=== PATIENT | male | born 1980 | race Caucasian/White ===

== ENCOUNTER 2020-04-16 03:32 | Emergency (ER) | payer MEDICAID ==
[~2020-04-16] VITALS: Ht 175.3 cm; Wt 100.0 kg
[~2020-04-16 03:32] MED LIST: ARIP10TA15 PO; FAMO20TA8 PO; FLUO20CA39 PO; GABA300C PO; OMEP20CA15 PO; PRAZ1CAP2 PO
[2020-04-16] MEDS ORDERED: triamcinolone acetonide 40mg/ml inj IM ONE (04:35)
[2020-04-16] MEDS ORDERED: ketorolac trometh inj. 60 MG/2 ML VIAL IM ONE (04:35)
[2020-04-16] MEDS ORDERED: acetaminophen 325mg tablet PO ONE (04:35)
[2020-04-16 04:49] VITALS: BP 115/71
== END 2020-04-16 04:51 | disposition home or self-care (01) ==
LOC: ER 03:32
DX: M25.532 Pain in left wrist (principal); M54.9 Dorsalgia, unspecified; K21.9 Gastro-esophageal reflux disease without esophagitis; I10 Essential (primary) hypertension; F32.9 Major depressive disorder, single episode, unspecified; F12.90 Cannabis use, unspecified, uncomplicated; Z72.89 Other problems related to lifestyle; Z88.2 Allergy status to sulfonamides; Z88.8 Allergy status to other drugs, medicaments and biological substances; Z79.899 Other long term (current) drug therapy
CPT/HCPCS: 96372; 99284; J1885; J3301